=== PATIENT | female | born 1955 | race Caucasian/White ===

== ENCOUNTER 2016-12-15 14:09 | Emergency (ER) | payer MEDICAID, OTHER ==
[~2016-12-15] VITALS: Ht 167.6 cm; Wt 59.5 kg
[~2016-12-15 14:09] MED LIST: NEBU-27 MC; RTPRO NEB
[2016-12-15 14:13] VITALS: Ht 167.6 cm; Wt 59.5 kg
--- NOTE | 2016-12-15 16:36 | RADRPT ---
PROCEDURE: XR Abdomen. CLINICAL INDICATION: Constipation for 2 days. TECHNIQUE: Single view of the abdomen is available for review. COMPARISON: None. FINDINGS: There is a nonobstructive bowel gas pattern. There is a moderate amount of stool througho ut the colon and rectum, suggestive of constipation. There are no abnormal calcifications overlying the urinary tracts. There is lumbar levoscoliosis and moderate degenerative enthesopathy at L4-5. T here are no acute osseous abnormalities. IMPRESSION: 1. Moderate of stool throughout the colon and rectum, suggestive of constipation. RPTAT: HLBP .Adams Solis MD, Date Time Electronically viewed and signed by .Adams Solis MD, on 12/15/2016 16:36 .P/
[2016-12-15] MEDS ORDERED: POLY17PO6 PO (16:50)
[2016-12-15] MEDS ORDERED: DOCU-144 PO (16:50)
[2016-12-15] MEDS ORDERED: MAGN400O4 PO (16:50)
--- NOTE | 2016-12-15 19:41 | ERD ---
ER Documentation Chief Complaint Date/Time DATE: 12/15/16 TIME: 19:37 Chief Complaint CONSTIPATION X 2 DAYS, LOW BACK PAIN HPI This is a 61-year-old female presenting to emergency department for constipation 2 days. Patient denies abdominal pain. No nausea, vomiting or diarrhea. No fevers or chills. Patient states she tried Metamucil at home without relief of symptoms. No back or flank pain. Patient has some pain in rectum when trying to have bowel movement. ROS All systems reviewed and are negative except as per history of present illness. Medications Home Meds Active Scripts Docusate Sodium* (Colace*) 100 Mg Capsule, 100 MG PO BID, #30 CAP Prov:WIL BENDER NP 12/15/16 Polyethylene Glycol* (Miralax*) 17 Gm Powd.pack, 17 GM PO DAILY, #7 Prov:WIL BENDER NP 12/15/16 Nebulizer (ALTERA NEBULIZER) 1 Each Each, 1 EACH MC, #1 Prov:GINNY ZHANG MD 10/29/14 Albuterol Sulfate* (Proventil* Neb) 0.083% Neb, 2.5 MG NEB Q4 Y for SHORTNESS OF BREATH, #30 EA Prov:LISANDRO LLAMAS PA-C 10/27/14 Discontinued Scripts Magnesium Hydroxide* (Milk Of Magnesia*) 400 Mg/5 Ml Oral.susp, 30 ML PO DAILY, #240 ML Prov:IWL BENDER NP 12/15/16 Allergies Allergies: Coded Allergies: No Known Allergy (Unverified , 12/15/16) PMhx/Soc History of Surgery: No Anesthesia Reaction: No Hx Neurological Disorder: No Hx Respiratory Disorders: No Hx Cardiac Disorders: No Hx Psychiatric Problems: No Hx Miscellaneous Medical Probl: No Hx Alcohol Use: No Hx Substance Use: No Hx Tobacco Use: No Smoking Status: Never smoker Physical Exam Vitals Vital Signs Date Time Temp Pulse Resp B/P Pulse Ox O2 Delivery O2 Flow Rate FiO2 12/15/16 14:13 97.9 71 20 125/60 98 Physical Exam Const: No acute distress, alert Head: Atraumatic Eyes: Normal Conjunctiva ENT: Normal External Ears, Nose and Mouth. Neck: Full range of motion..~ No meningismus. Resp: Clear to auscultation bilaterally Cardio: Regular rate and rhythm, no murmurs Abd: Soft, non tender, non distended. Normal bowel sounds Skin: No petechiae or rashes Back: No midline or flank tenderness Ext: No cyanosis, or edema Neur: Awake and alert Psych: Normal Mood and Affect Procedures/MDM [place] [id number] Radiology Main Line: [phone] DIAGNOSTIC IMAGING REPORT Patient: EDDA EDWARD : 1955 Age: 61 Sex: F MR #: [id number] DOS: 12/15/16 1535 Ordering MD: WIL PEÑALOZA NP Location: [facility] Room/Bed: PROCEDURE: XR Abdomen. CLINICAL INDICATION: Constipation for 2 days. TECHNIQUE: Single view of the abdomen is available for review. COMPARISON: None. FINDINGS: There is a nonobstructive bowel gas pattern. There is a moderate amount of stool throughout the colon and rectum, suggestive of constipation. There are no abnormal calcifications overlying the urinary tracts. There is lumbar levoscoliosis and moderate degenerative enthesopathy at L4-5. There are no acute osseous abnormalities. IMPRESSION: 1. Moderate of stool throughout the colon and rectum, suggestive of constipation. MDM: This is a 61-year-old female presenting to emergency department for constipation 2 days. There is no abdominal pain, pelvic pain, flank pain or back pain on physical exam. No vomiting while in the ED. Patient is afebrile and vital signs are stable. No past medical or surgical history. X-ray KUB reviewed by radiologist moderate of stool throughout the colon and rectum, suggestive of constipation. Nonobstructive bowel gas pattern Patient diagnosis is constipation. Low suspicion for diverticulitis, cholecystitis, appendicitis or bowel obstruction. Patient is appropriate for outpatient management will be given prescription for MiraLAX, Colace and instructed to follow-up with primary care provider in the next 2-3 days for reassessment. Return to ED for any high fever, chest pain, difficulty breathing, shortness breath, wheezing, vomiting, diarrhea, abdominal pain or any new or worsening symptoms. Patient verbalizes understanding. All questions answered at discharge. Disclaimer: Inadvertent spelling and grammatical errors are likely due to EHR/ dictation software use and do not reflect on the overall quality of patient care. Also, please note that the electronic time recorded on this note does not necessarily reflect the actual time of the patient encounter. Departure Diagnosis: Primary Impression: Constipation Constipation type: unspecified constipation type Qualified Code: K59.00 - Constipation, unspecified constipation type Condition: Stable Patient Instructions: Constipation (Adult) [facility] Usted se murray hecho un examen mdico de control que le indica que no est en vidya condicin que requiera tratamiento urgente en el Departamento de Emergencia. Un estudio ms profundo y el tratamiento de crenshaw condicin pueden esperar sin ningn riesgo hasta que usted sea atendida/o en el consultorio de crenshaw mdico o vidya cl lilliam. Es responsabilidad suya arreglar vidya katie para el seguimiento del sabiha. MANEJO DE CONDICIONES NO URGENTES EN EL FUTURO 1) Si usted tiene un mdico de atencin primaria: Usted debera llamar a crenshaw mdico de atencin primaria antes de venir al departamento de emergencia. Despus de las horas de consultorio, crenshaw doctor o crenshaw asociado/a est disponible por telfono. El mdico o enfermero de ismael en el servicio telefnico puede asesorarle por angie medio para atender el problema, o sabiha contrario se puede programar vidya katie. 2) Si usted no tiene un mdico de atencin primaria: Llame al mdico o clnica de referencia que aparece abajo aida las horas de consultorio para hacer vidya katie para que le vean. CLINICAS: [facility] [phone] [address] [facility] [phone] [facility] [place] [phone] [facility] [phone] [address] [facility] 151 [phone] 6801 [facility] [phone] [address] [facility]. [facility] () Vianney se murray hecho un examen mdico de control que le indica que no est en vidya condicin que requiera tratamiento urgente en el Departamento de Emergencia. Un estudio ms profundo y el tratamiento de crenshaw condicin pueden esperar sin ningn riesgo hasta que usted sea atendida/o en el consultorio de crenshaw mdico o vidya cl lilliam. Es responsabilidad suya arreglar vidya katie para el seguimiento del sabiha. MANEJO DE CONDICIONES NO URGENTES EN EL FUTURO 1) Si usted tiene un mdico de atencin primaria: Usted debera llamar a crenshaw mdico de atencin primaria antes de venir al departamento de emergencia. Despus de las horas de consultorio, crenshaw doctor o crenshaw asociado/a est disponible por telfono. El mdico o enfermero de ismael en el servicio telefnico puede asesorarle por angie medio para atender el problema, o sabiha contrario se puede programar vidya katie. 2) Si usted no tiene un mdico de atencin primaria: Llame al mdico o condado institucions de referencia que aparece abajo aida las horas de consultorio para hacer vidya katie para que le vean. SI USTED NO PUEDE PAGAR PARA DEONTE UN MEDICO puede ir a: [facility] [id number] [place] [address] [facility] [address] [place] [address] [facility] [address] [place] [address] PARA ULICES [facility] [address] [place], [place] [id number] Additional Instructions: Llame al doctor MAANA y alberto vidya KATIE PARA DENTRO DE 2-3 ZHANG.Dgale a la secretaria que nosotros le instruimos hacer esta katie.Avise o llame si crenshaw condicin se empeora antes de la katie. Regresa aqui si peor o no mejor. Regresar a ED por fiebre ban, dolor en el pecho, dificultad para respirar, respiracin entrecortada, sibilancias, vmitos, diarrea, dolor abdominal o cualquier sntoma nuevo o que empeora. WIL BENDER NP Dec 15, 2016 19:41
== END 2016-12-15 17:58 | disposition home or self-care (01) ==
LOC: FTE 14:09
DX: K59.00 Constipation, unspecified (principal)
CPT/HCPCS: 74000; Z7502